=== PATIENT | male | born 1960 | race Caucasian/White ===

== ENCOUNTER 2021-06-17 08:57 | Day surgery (SDC) | payer OTHER ==
[~2021-06-17] VITALS: Ht 152.4 cm; Wt 122.5 kg
[2021-06-17] MEDS ORDERED: fentaNYL citrate 0.05 MG/ML VIAL ONE (10:45)
[2021-06-17] MEDS ORDERED: diphenhydrAMINE 50 MG/ML VIAL ONE (10:45)
[2021-06-17] MEDS ORDERED: MIDAZOLAM 5 MG/5 ML VIAL ONE (10:46)
[2021-06-17] MEDS ORDERED: fentaNYL citrate 0.05 MG/ML VIAL IVP ONE (13:15)
[2021-06-17] MEDS ORDERED: MIDAZOLAM 2 MG/2 ML VIAL IVP ONE (13:15)
== END 2021-06-17 12:15 | disposition home or self-care (01) ==
LOC: MDS 08:57 → MMU 09:49 → MDS 12:15
PROVIDERS: ATTEND Internal Medicine Gastroenterology
DX: R13.10 Dysphagia, unspecified (principal); K29.80 Duodenitis without bleeding; K31.9 Disease of stomach and duodenum, unspecified; K44.9 Diaphragmatic hernia without obstruction or gangrene; K22.70 Barrett's esophagus without dysplasia; E05.00 Thyrotoxicosis with diffuse goiter without thyrotoxic crisis or storm; I48.91 Unspecified atrial fibrillation; Z79.01 Long term (current) use of anticoagulants; Z79.899 Other long term (current) drug therapy
CPT/HCPCS: 43239; 88305; 88312; 88313; J2250; J3010; J1200